=== PATIENT | female | born 2000 | race Caucasian/White ===

== ENCOUNTER 2019-08-01 02:43 | Emergency (ER) | payer OTHER ==
[~2019-08-01] VITALS: Ht 167.6 cm; Wt 90.7 kg
[2019-08-01] MEDS ORDERED: BIRTH CONTROL (03:00)
[2019-08-01 03:15] LABS: HEMATOCRIT 41.9 % (37.0-47.0); HEMOGLOBIN 13.9 gm/dL (12.0-15.0); MCH 26.1 pg (26.0-34.0); MCHC 33.2 g/dL (28.0-37.0); MCV 78.5 fL (80.0-100.0); MPV 7.3 fl. (7.2-11.1); NUCLEATED RBCS 0 /100WBC; PLATELET COUNT* 523 thou/uL (150-400); RBC 5.34 mil/uL (4.20-5.00); RDW-CV 14.5 % (10.5-14.5); WBC 22.1 thou/uL (4.0-11.0)
[2019-08-01 03:22] LABS: CALCIUM 9.6 mg/dL (8.5-10.1); CREATININE 0.9 mg/dL (0.6-1.3); POTASSIUM 4.2 mmol/L (3.5-5.1)
[2019-08-01 03:26] LABS: TOTAL BILIRUBIN 0.2 mg/dL (<0.1-1.0); TOTAL PROTEIN 7.8 g/dL (6.4-8.2)
[2019-08-01 03:32] LABS: ABSOLUTE MONOCYTES 1.1 thou/uL (0.0-1.2); HYPOCHROMASIA 1+; MICROCYTES 1+
[2019-08-01 03:33] LABS: PLATELET ESTIMATE INCREASED
[2019-08-01 03:42] LABS: URINE BILIRUBIN NEGATIVE (Negative); URINE BLOOD 1+ (Negative); URINE CLARITY CLEAR; URINE COLOR YELLOW; URINE GLUCOSE-RANDOM NEGATIVE (Negative); URINE KETONES NEGATIVE (Negative); URINE LEUKOCYTES-REFLEX NEGATIVE (Negative); URINE NITRITE-REFLEX NEGATIVE (Negative); URINE PROTEIN NEGATIVE (Negative); URINE SPECIFIC GRAVITY <= 1.005 (1.005-1.030); URINE UROBILINOGEN 0.2 E.U./dl (0.2-1.0)
[2019-08-01 03:48] LABS: BACTERIA-REFLEX None Seen /HPF (None Seen); CASTS None Seen /LPF (None Seen); CRYSTALS None Seen /LPF (None Seen); SQUAMOUS 0-3 Few /LPF (0-3); URINE RBC 3-10 Few /HPF (0-2); URINE WBC-REFLEX None Seen /HPF (0-5)
[2019-08-01] MEDS ORDERED: NORCO 5-325 TA1 EAC1 PO (05:48)
[2019-08-01] MEDS ORDERED: ZOFRAN ODT4 MG DISSOLVE (05:50)
[2019-08-01 06:04] VITALS: BP 117/60
== END 2019-08-01 06:06 | disposition home or self-care (01) ==
LOC: M.ERS 02:43
PROVIDERS: Emergency Medicine Emergency Medical Services
DX: K91.871 Postprocedural hematoma of a digestive system organ or structure following other procedure (principal); R11.2 Nausea with vomiting, unspecified; F41.9 Anxiety disorder, unspecified; F32.9 Major depressive disorder, single episode, unspecified; Z90.49 Acquired absence of other specified parts of digestive tract; Z98.890 Other specified postprocedural states; Z91.040 Latex allergy status; Z88.8 Allergy status to other drugs, medicaments and biological substances